=== PATIENT | female | born 1990 | race Caucasian/White ===

== ENCOUNTER 2016-09-27 02:19 | Emergency (ER) | payer BC, OTHER ==
[2016-09-27] MEDS ORDERED: Sodium Chloride 0.9% 1,000 ML IV ONE (02:37)
[2016-09-27] MEDS ORDERED: Acetaminophen 325 MG Tab PO ONE (02:37)
--- NOTE | 2016-09-27 02:48 | EDM.PDOC ---
ED HPI GENERAL MEDICAL PROBLEM - General Chief Complaint: Fever Stated Complaint: UTI, FEVER Time Seen by Provider: 09/27/16 02:35 Source of Information: Reports: Patient History Limitations: Reports: No Limitations - History of Present Illness INITIAL COMMENTS - FREE TEXT/NARRATIVE: This 26 yo female patient reports to the ED with a fever and a "tingle" after she urinates. The patient reports she started to feel ill on Sunday with a fever and chills and has been getting worse since that time. The patient reports she has been taking ibuprofen with her last dose at 0200 this morning. The patient reports she has not been seen in the clinic, but has been increasing her oral fluid intake. 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 [No Known Home Meds] 08/05/14 [History] Past Medical History - Past Health History Medical/Surgical History: Denies Medical/Surgical History Social & Family History - Tobacco Use Smoking Status *Q: Never Smoker Years of Tobacco use: 3 Second Hand Smoke Exposure: No - Alcohol Use Days Per Week of Alcohol Use: 0 - Recreational Drug Use Recreational Drug Use: No - Living Situation & Occupation Living situation: Reports: Single, with Family Occupation: Employed ED ROS GENERAL - Review of Systems Review Of Systems: ROS reveals no pertinent complaints other than HPI. ED EXAM, GENERAL - Physical Exam Exam: See Below Exam Limited By: No Limitations General Appearance: Alert, WD/WN, Moderate Distress, Thin Eye Exam: Bilateral Eye: EOMI, Normal Inspection, PERRL Ears: Normal External Exam, Normal Canal, Hearing Grossly Normal, Normal TMs Nose: Normal Inspection, Normal Mucosa, No Blood Throat/Mouth: Normal Inspection, Normal Lips, Normal Teeth, Normal Gums, Normal Oropharynx, Normal Voice, No Airway Compromise Head: Atraumatic, Normocephalic Neck: Normal Inspection, Supple, Non-Tender, Full Range of Motion Respiratory/Chest: No Respiratory Distress, Lungs Clear, Normal Breath Sounds, No Accessory Muscle Use, Chest Non-Tender Cardiovascular: No Edema, No JVD, No Murmur, No Rub, Tachycardia GI/Abdominal: Normal Bowel Sounds, Soft, Rebound, Tender (RLQ) (Female) Exam: Deferred Rectal (Female) Exam: Deferred Back Exam: Normal Inspection, Full Range of Motion, NT Extremities: Other (bruising to her right lateral foot) Neurological: Alert, Oriented, CN II-XII Intact, Normal Cognition, Normal Reflexes, No Motor/Sensory Deficits Psychiatric: Normal Affect, Normal Mood Skin Exam: No Rash, Diaphoretic, Increased Warmth Lymphatic: No Adenopathy Course - Vital Signs Last Recorded V/S: Last Vital Signs Temp 37.6 C 09/27/16 04:01 Pulse 120 H 09/27/16 04:01 Resp 18 09/27/16 04:01 BP 104/42 L 09/27/16 04:01 Pulse Ox 99 09/27/16 04:01 - Orders/Labs/Meds Orders: Active Orders 24 hr Category Date Time Status Abdomen Pelvis wo Cont [CT] Urgent Exams 09/27/16 02:56 Ordered Foot Comp Min 3V Rt [CR] Urgent Exams 09/27/16 03:22 Ordered CHLAMYDIA TRACHOMATIS/GC AMPLF Urgent Lab 09/27/16 02:25 Received CULTURE BLOOD [BC] Stat Lab 09/27/16 02:30 Received CULTURE BLOOD [BC] Stat Lab 09/27/16 02:35 Results CULTURE URINE [RM] Stat Lab 09/27/16 03:01 Ordered Blood Culture x2 Reflex Set [OM.PC] Stat Oth 09/27/16 02:24 Ordered Labs: Laboratory Tests 09/27/16 09/27/16 09/27/16 Range/Units 02:25 02:25 02:25 WBC (5.0-10.0) 10^3/uL RBC (4.2-5.4) 10^6/uL Hgb (12.0-16.0) g/dL Hct (37.0-47.0) % MCV (80-100) fL MCH (27.0-34.0) pg MCHC (33.0-35.0) g/dL Plt Count (150-450) 10^3/uL Neut % (Auto) (42.2-75.2) % Lymph % (Auto) (20.5-50.1) % [place] % (Auto) (2-8) % Eos % (Auto) (1.0-3.0) % Baso % (Auto) (0.0-1.0) % Sodium (135-145) mmol/L Potassium (3.6-5.0) mmol/L Chloride (101-111) mmol/L Carbon Dioxide (21.0-31.0) mmol/L Anion Gap BUN (7-18) mg/dL Creatinine (0.6-1.3) mg/dL Est Cr Clr Drug Dosing Estimated GFR (MDRD) BUN/Creatinine Ratio Glucose (74-105) mg/dL Lactic Acid (0.5-2.2) mmol/L Calcium (8.4-10.2) mg/dl Total Bilirubin (0.2-1.0) mg/dL AST (10-42) IU/L ALT (10-60) IU/L Alkaline Phosphatase (42-121) IU/L Total Protein (6.7-8.2) g/dl Albumin (3.2-5.5) g/dl Globulin Albumin/Globulin Ratio Urine Color Yellow (YELLOW) Urine Appearance Cloudy (CLEAR) Urine pH 6.0 (5.0-9.0) Ur Specific [place] 1.025 (1.005-1.030) Urine Protein >=300 H (NEGATIVE) Urine Glucose (UA) Negative (NEGATIVE) Urine Ketones Negative (NEGATIVE) Urine Occult Blood Large H (NEGATIVE) Urine Nitrite Positive H (NEGATIVE) Urine Bilirubin Negative (NEGATIVE) Urine Urobilinogen 0.2 (0.2-1.0) mg/dL Ur Leukocyte Esterase Large H (NEGATIVE) Urine RBC 5-10 H /HPF Urine WBC Packed H (0-5/HPF) /HPF Ur Epithelial Cells Moderate H /HPF Urine Bacteria Many H (0-FEW/HPF) /HPF Urine Other See note Urine HCG, Qual Negative Urine Opiates Screen Negative (NEGATIVE) Ur Oxycodone Screen Negative (NEGATIVE) Urine Methadone Screen Negative (NEGATIVE) Ur Barbiturates Screen Negative (NEGATIVE) U Tricyclic Antidepress Negative (NEGATIVE) Ur Phencyclidine Scrn Negative (NEGATIVE) Ur Amphetamine Screen Negative (NEGATIVE) U Methamphetamines Scrn Negative (NEGATIVE) Urine MDMA Screen Negative (NEGATIVE) U Benzodiazepines Scrn Negative (NEGATIVE) Urine Cocaine Screen Negative (NEGATIVE) U Marijuana (THC) Screen Negative (NEGATIVE) 09/27/16 09/27/16 09/27/16 Range/Units 02:30 02:30 02:30 WBC 8.1 (5.0-10.0) 10^3/uL RBC 4.07 L (4.2-5.4) 10^6/uL Hgb 12.6 (12.0-16.0) g/dL Hct 36.6 L (37.0-47.0) % MCV 89.9 (80-100) fL MCH 31.0 (27.0-34.0) pg MCHC 34.4 (33.0-35.0) g/dL Plt Count 137 L (150-450) 10^3/uL Neut % (Auto) 85.8 H (42.2-75.2) % Lymph % (Auto) 11.7 L (20.5-50.1) % [place] % (Auto) 2.3 (2-8) % Eos % (Auto) 0.1 L (1.0-3.0) % Baso % (Auto) 0.1 (0.0-1.0) % Sodium 137 (135-145) mmol/L Potassium 3.6 (3.6-5.0) mmol/L Chloride 105 (101-111) mmol/L Carbon Dioxide 21.0 (21.0-31.0) mmol/L Anion Gap 14.6 BUN 10 (7-18) mg/dL Creatinine 0.9 (0.6-1.3) mg/dL Est Cr Clr Drug Dosing TNP Estimated GFR (MDRD) > 60 BUN/Creatinine Ratio 11.11 Glucose 125 H (74-105) mg/dL Lactic Acid 1.4 (0.5-2.2) mmol/L Calcium 9.1 (8.4-10.2) mg/dl Total Bilirubin 0.8 (0.2-1.0) mg/dL AST 17 (10-42) IU/L ALT 12 (10-60) IU/L Alkaline Phosphatase 45 (42-121) IU/L Total Protein 7.5 (6.7-8.2) g/dl Albumin 4.2 (3.2-5.5) g/dl Globulin 3.3 Albumin/Globulin Ratio 1.27 Urine Color (YELLOW) Urine Appearance (CLEAR) Urine pH (5.0-9.0) Ur Specific [place] (1.005-1.030) Urine Protein (NEGATIVE) Urine Glucose (UA) (NEGATIVE) Urine Ketones (NEGATIVE) Urine Occult Blood (NEGATIVE) Urine Nitrite (NEGATIVE) Urine Bilirubin (NEGATIVE) Urine Urobilinogen (0.2-1.0) mg/dL Ur Leukocyte Esterase (NEGATIVE) Urine RBC /HPF Urine WBC (0-5/HPF) /HPF Ur Epithelial Cells /HPF Urine Bacteria (0-FEW/HPF) /HPF Urine Other Urine HCG, Qual Urine Opiates Screen (NEGATIVE) Ur Oxycodone Screen (NEGATIVE) Urine Methadone Screen (NEGATIVE) Ur Barbiturates Screen (NEGATIVE) U Tricyclic Antidepress (NEGATIVE) Ur Phencyclidine Scrn (NEGATIVE) Ur Amphetamine Screen (NEGATIVE) U Methamphetamines Scrn (NEGATIVE) Urine MDMA Screen (NEGATIVE) U Benzodiazepines Scrn (NEGATIVE) Urine Cocaine Screen (NEGATIVE) U Marijuana (THC) Screen (NEGATIVE) Meds: Medications Discontinued Medications Generic Name Dose Route Start Last Admin Trade Name Carsonq PRN Reason Stop Dose Admin Acetaminophen 650 mg 09/27/16 02:37 Tylenol PO 09/27/16 02:38 NOW ONE Sodium Chloride 1,000 mls @ 999 mls/hr 09/27/16 02:37 09/27/16 02:41 Normal Saline IV 09/27/16 03:37 999 mls/hr .BOLUS ONE Administration Levofloxacin/Dextrose 500 mg/ 100 mls @ 100 mls/hr 09/27/16 02:58 09/27/16 03 :02 Premix IV 09/27/16 03:57 100 mls/hr ONETIME ONE Administration Departure - Departure Time of Disposition: 04:17 Disposition: Home, Self-Care 01 Condition: Fair Clinical Impression: Right ankle strain Qualifiers: Encounter type: initial encounter Qualified Code(s): S96.911A - Strain of unspecified muscle and tendon at ankle and foot level, right foot, initial encounter UTI (urinary tract infection) Qualifiers: Urinary tract infection type: site unspecified Hematuria presence: with hematuria Qualified Code(s): N39.0 - Urinary tract infection, site not specified ; R31.9 - Hematuria, unspecified - Discharge Information Instructions: Ankle Sprain, [id number], Urinary Tract Infection, Adult, Easy- to-Read Forms: ED Department Discharge Care Plan Goals: The patient was advised of the examination, lab and CT results during the visit. The patient was given IV fluids, an oral dose of Tylenol, an IV dose of Levaquin and an oral dose of Pyridium while in the ED. The patient was discharged with a script for Levaquin (500 mg) #6 to take 1 by mouth daily for 6 days and Pyridium (200 mg) #6 to take 1 by mouth 3 times per day for 2 days. If the patient has any additional symptoms or concerns, the patient should follow-up with her primary care provider or return to the emergency department. - My Orders Last 24 Hours: My Active Orders 09/27/16 02:24 Blood Culture x2 Reflex Set [OM.PC] Stat 09/27/16 02:25 CHLAMYDIA TRACHOMATIS/GC AMPLF Urgent 09/27/16 02:30 CULTURE BLOOD [BC] Stat 09/27/16 02:35 CULTURE BLOOD [BC] Stat 09/27/16 02:56 Abdomen Pelvis wo Cont [CT] Urgent 09/27/16 03:01 CULTURE URINE [RM] Stat 09/27/16 03:22 Foot Comp Min 3V Rt [CR] Urgent - Assessment/Plan Last 24 Hours: My Active Orders 09/27/16 02:24 Blood Culture x2 Reflex Set [OM.PC] Stat 09/27/16 02:25 CHLAMYDIA TRACHOMATIS/GC AMPLF Urgent 09/27/16 02:30 CULTURE BLOOD [BC] Stat 09/27/16 02:35 CULTURE BLOOD [BC] Stat 09/27/16 02:56 Abdomen Pelvis wo Cont [CT] Urgent 09/27/16 03:01 CULTURE URINE [RM] Stat 09/27/16 03:22 Foot Comp Min 3V Rt [CR] Urgent
[2016-09-27 02:57] LABS: CHLORIDE,CL 105 mmol/L (101-111); SODIUM,NA 137 mmol/L (135-145)
[2016-09-27] MEDS ORDERED: Levofloxacin/Dextrose 5%-Water 500 MG in Premix Bag 1 BAG IV ONE (02:58)
[2016-09-27 04:02] VITALS: BP 104/42
[2016-09-27] MEDS ORDERED: Phenazopyridine 95 MG Tab PO ONE (04:19)
== END 2016-09-27 04:32 | disposition home or self-care (01) ==
LOC: DL.ED 02:19
DX: N39.0 Urinary tract infection, site not specified (principal); R31.9 Hematuria, unspecified; S96.911A Strain of unspecified muscle and tendon at ankle and foot level, right foot, initial encounter; R93.5 Abnormal findings on diagnostic imaging of other abdominal regions, including retroperitoneum
CPT/HCPCS: 36415; 73630; 74176; 80053; 80305; 81001; 81025; 83605; 85025; 87040; 87086; 87491; 87591; 96365; 99284; A9270; J1956; J7030; 87088; 87186